=== PATIENT | male | born 1985 | race African-American/Black ===

== ENCOUNTER 2019-03-27 09:07 | Emergency (ER) | payer OTHER ==
[2019-03-27 09:51] VITALS: BP 120/98; PULSE 93
--- NOTE | 2019-03-27 10:53 | EDM.PDOC ---
ED HPI GENERAL MEDICAL PROBLEM - General Chief Complaint: Fever Stated Complaint: HEADACHE VOMITING AND COUGH Time Seen by Provider: 03/27/19 09:16 Source of Information: Reports: Patient, RN Notes Reviewed - History of Present Illness INITIAL COMMENTS - FREE TEXT/NARRATIVE: 33-year-old male became ill with cough congestion fever chills 2 days ago. As for other family members ill with the same symptoms. He states he has a lot of achiness and also does have headache. Is mostly nonproductive. Difficulty breathing. He did not get a flu shot this year Back Pain Score (Numeric/FACES): 8 - Related Data Allergies Allergy/AdvReac Type Severity Reaction Status Date / Time No Known Allergies Allergy Verified 12/19/14 11:38 Home Meds: Home Meds . [No Known Home Meds] 03/27/19 [History] Past Medical History - Past Health History Medical/Surgical History: Denies Medical/Surgical History HEENT History: Reports: None Cardiovascular History: Reports: None Respiratory History: Reports: Asthma Other Respiratory History: states outgrew as a child Gastrointestinal History: Reports: None Genitourinary History: Reports: None Musculoskeletal History: Reports: Back Pain, Chronic Neurological History: Reports: None Psychiatric History: Reports: None Endocrine/Metabolic History: Reports: None Hematologic History: Reports: None Immunologic History: Reports: None Oncologic (Cancer) History: Reports: None Dermatologic History: Reports: None - Infectious Disease History Infectious Disease History: Reports: None - Past Surgical History HEENT Surgical History: Reports: None Cardiovascular Surgical History: Reports: None GI Surgical History: Reports: None Male Surgical History: Reports: None Musculoskeletal Surgical History: Reports: None Social & Family History - Family History HEENT: Reports: None Cardiac: Reports: CAD Respiratory: Reports: Asthma : Reports: None OBGYN: Reports: None Musculoskeletal: Reports: None Neurological: Reports: None Psychiatric: Reports: None Endocrine/Metabolic: Reports: None Hematologic: Reports: None Oncologic: Reports: Breast - Tobacco Use Smoking Status *Q: Never Smoker - Caffeine Use Caffeine Use: Reports: Energy Drinks, Soda - Recreational Drug Use Recreational Drug Use: No ED ROS GENERAL - Review of Systems Review Of Systems: See Below Constitutional: Reports: Fever, Chills HEENT: Reports: Rhinitis. Denies: Ear Pain Respiratory: Reports: Cough, Sputum GI/Abdominal: Denies: Abdominal Pain, Diarrhea, Vomiting Musculoskeletal: Reports: Other (Generalized achiness) Skin: Reports: No Symptoms Neurological: Reports: Headache ED EXAM, GENERAL - Physical Exam Exam: See Below General Appearance: Alert, No Apparent Distress Nose: Normal Inspection Throat/Mouth: Normal Inspection Head: Atraumatic. No: Facial Swelling Respiratory/Chest: No Respiratory Distress, Lungs Clear, Normal Breath Sounds. No: Rhonchi, Wheezing Cardiovascular: Regular Rate, Rhythm Extremities: Normal Inspection Neurological: Alert, Oriented, No Motor/Sensory Deficits Skin Exam: Warm, Dry Course - Vital Signs Last Recorded V/S: Last Vital Signs Temp 98.6 F 03/27/19 09:47 Pulse 93 03/27/19 09:47 Resp 16 03/27/19 09:47 BP 120/98 H 03/27/19 09:47 Pulse Ox 98 03/27/19 09:47 - Re-Assessments/Exams Free Text/Narrative Re-Assessment/Exam: 03/27/19 12:04 [id number] daughter did test positive for influenza B.: About the same time that he did. He did all 5 members of the family are ill with the same symptoms. He does need a work note for today and tomorrow. Discharge instructions as documented. Departure - Departure Time of Disposition: 10:51 Disposition: Home, Self-Care 01 Condition: Fair Clinical Impression: Influenza - Discharge Information Instructions: Influenza, Adult, [id number] Referrals: PCP,None [Primary Care Provider] - Forms: ED Department Discharge, ED Return to Work/School Form Additional Instructions: Rest, vaporizer or steam as needed, alternate Tylenol and ibuprofen as needed for discomfort. Your symptoms should gradually improve over the next 2-3 days. You should be feeling a fair amount better by Friday. Follow-up clinic if not much better within 3-4 days as expected. Return to ED as needed. Sepsis Event Note - Evaluation Sepsis Screening Result: No Definite Risk - Focused Exam Vital Signs: Vital Signs Temp Pulse Resp BP Pulse Ox 03/27/19 09:47 98.6 F 93 16 120/98 H 98 Date Exam was Performed: 03/27/19 Time Exam was Performed: 12:00
== END 2019-03-27 11:00 | disposition home or self-care (01) ==
LOC: JD.ED 09:07
DX: J11.1 Influenza due to unidentified influenza virus with other respiratory manifestations (principal)
CPT/HCPCS: 99281; 99283

== ENCOUNTER 2019-12-03 09:18 | Emergency (ER) | payer OTHER ==
[2019-12-03 09:41] VITALS: BP 126/80; PULSE 81
--- NOTE | 2019-12-03 09:47 | EDM.PDOC ---
ED HPI GENERAL MEDICAL PROBLEM - General Chief Complaint: Bite:Animal, Insect Stated Complaint: DOG BITE Time Seen by Provider: 12/03/19 09:46 Source of Information: Reports: Patient History Limitations: Reports: No Limitations - History of Present Illness INITIAL COMMENTS - FREE TEXT/NARRATIVE: 34-year-old male presents to the ED with a dog bite to the palmar aspect of his right hand. Of note he is right-hand dominant. He states he was just playing with his pitbull dog after he got home from work at 0100 hrs. this morning and the dog nipped him causing a bite to the volar aspect of his right hand below distal to the second metacarpal joint. Subcutaneous tissue has been brought back up through the wound and it is protruding from the wound. Laceration appears to be around 2 cm in length. It is being cleaned up at this time. Patient is unsure when his last tetanus toxoid and diphtheria pertussis vaccine was updated. It will be dated today. He reports the dog is up-to-date on all of its shots. Onset: Today, Sudden Onset Date: 12/03/19 Onset Time: 01:00 Duration: Hour(s):, Constant Location: Reports: Upper Extremity, Right (Right palmar aspect of hand dog wound just proximal to the second MCP joint of his right hand. Subcutaneous tissue is protruding from the wound.) Quality: Reports: Ache, Burning, Throbbing Severity: Mild Improves with: Reports: None Worsens with: Reports: None Context: Reports: Trauma (Dog bite right hand), Other. Denies: Activity, Exercise, Lifting, Sick Contact Associated Symptoms: Reports: No Other Symptoms Treatments DATA ANALYSIS INTERN: Reports: Other (see below) Right Hand Pain Score (Numeric/FACES): 6 - Related Data Allergies Allergy/AdvReac Type Severity Reaction Status Date / Time No Known Allergies Allergy Verified 12/03/19 09:41 Home Meds: Home Meds Amoxicillin/Clavulanate K [Augmentin 500-125 MG] 1 tab PO BID #12 tablet 12/03/19 [Rx] Past Medical History - Past Health History Medical/Surgical History: Denies Medical/Surgical History HEENT History: Reports: None Cardiovascular History: Reports: None Respiratory History: Reports: Asthma Other Respiratory History: states outgrew as a child Gastrointestinal History: Reports: None Genitourinary History: Reports: None Musculoskeletal History: Reports: Back Pain, Chronic Neurological History: Reports: None Psychiatric History: Reports: None Endocrine/Metabolic History: Reports: None Hematologic History: Reports: None Immunologic History: Reports: None Oncologic (Cancer) History: Reports: None Dermatologic History: Reports: None - Infectious Disease History Infectious Disease History: Reports: Chicken Pox - Past Surgical History HEENT Surgical History: Reports: None Cardiovascular Surgical History: Reports: None GI Surgical History: Reports: None Male Surgical History: Reports: None Musculoskeletal Surgical History: Reports: None Social & Family History - Family History Family Medical History: Noncontributory HEENT: Reports: None Cardiac: Reports: CAD Respiratory: Reports: Asthma : Reports: None OBGYN: Reports: None Musculoskeletal: Reports: None Neurological: Reports: None Psychiatric: Reports: None Endocrine/Metabolic: Reports: None Hematologic: Reports: None Oncologic: Reports: Breast - Tobacco Use Smoking Status *Q: Never Smoker - Caffeine Use Caffeine Use: Reports: Coffee, Energy Drinks, Soda, Tea - Recreational Drug Use Recreational Drug Use: No - Living Situation & Occupation Living situation: Reports: Single Occupation: Employed ED ROS GENERAL - Review of Systems Review Of Systems: See Below Constitutional: Reports: No Symptoms HEENT: Reports: No Symptoms Respiratory: Reports: No Symptoms Cardiovascular: Reports: No Symptoms Endocrine: Reports: No Symptoms GI/Abdominal: Reports: No Symptoms : Reports: No Symptoms Musculoskeletal: Reports: No Symptoms Skin: Reports: No Symptoms Neurological: Reports: No Symptoms Psychiatric: Reports: No Symptoms Hematologic/Lymphatic: Reports: No Symptoms Immunologic: Reports: No Symptoms ED EXAM, ANIMAL BITE - Physical Exam Exam: See Below Exam Limited By: No Limitations General Appearance: Alert, WD/WN, No Apparent Distress, Other (Temperature is 36.4. Heart rate 81 and sinus respiratory is 19 with O2 sats of 99% room air BP 126/80.) Extremities: Other (Examination was limited to the palmar aspect of his right hand. He has suffered a deep dog bite estimated VO 2 cm in length slightly jagged just proximal to the second MCP joint right hand volar aspect. Adipose tissue is protruding from the wound and it will need to be debrided and closed with sutures.) Neurological: Alert, Oriented, CN II-XII Intact, Normal Cognition Psychiatric: Normal Affect Skin Exam: Normal Color, Warm/Dry ED ANIMAL BITE PROCEDURES - Laceration/Wound Repair Proximal Hand Lac/Wound Length In cm: 1.4 (Linear laceration approximately 1.4 cm in length with protruding subcutaneous fat tissue from the wound.) Appearance: Subcutaneous, Clean Distal NVT: Neuro & Vascular Intact Anesthetic Type: Local Local Anesthesia - Lidocaine (Xylocaine): 1% Plain Local Anesthetic Volume: 2cc Skin Prep: Chlorhexidine (Hibiciens) Closed With: Sutures Suture Size: 4-0 # of Sutures: 3 Suture Type: Nylon, Interrupted, Simple Course - Vital Signs Last Recorded V/S: Last Vital Signs Temp 36.4 C 12/03/19 09:39 Pulse 81 12/03/19 09:39 Resp 19 12/03/19 09:39 BP 126/80 12/03/19 09:39 Pulse Ox 99 12/03/19 09:39 - Orders/Labs/Meds Orders: Active Orders 24 hr Category Date Time Status Vaccines to be Administered [RC] PER UNIT ROUTINE Care 12/03/19 09:49 Active Meds: Medications Discontinued Medications Generic Name Dose Route Start Last Admin Trade Name Iker PRN Reason Stop Dose Admin Diphtheria/Tetanus/Acell Pertussis 0.5 ml 12/03/19 09:49 12/03/19 10:13 Adacel IM 12/03/19 09:50 0.5 ml .ONCE ONE Administration Lidocaine HCl 10 ml 12/03/19 09:50 Xylocaine 1% INJECT 12/03/19 09:51 ONETIME ONE - Radiology Interpretation Free Text/Narrative:: 34-year-old male of -[place] ancestry presents to the ED with an acute dog bite to the palmar aspect of his right hand. He has suffered a deep 2 cm bite wound to the volar aspect of his right hand just proximal to the second MCP joint. He has full range of motion of the finger and normal sensation to the tip. Wound however has adipose tissue protruding from the wound. The wound is to be cleansed and then will be sutured under local anesthetic. His tetanus diphtheria pertussis vaccine will be updated today since he cannot member his last one. He will be placed on Augmentin 500/125 mg tablets twice daily for the next 6 days to prevent secondary wound infection. - Re-Assessments/Exams Free Text/Narrative Re-Assessment/Exam: 12/03/19 11:49 once the wound was cleaned up it appears to be linear and approximately 1.4 cm in length. Fatty tissue is tubing from the wound. Wound was anesthetized with 1% lidocaine.And then debrided minimally. Sutures x3 with 4-0 Ethilon sutures were placed to provide wound apposition and hemostasis. Sutures will need to be removed in 10 days time. Patient the meantime will cleanse the wound daily and apply topical antibiotic such as bacitracin and Polysporin Departure - Departure Time of Disposition: 11:45 Disposition: Home, Self-Care 01 Condition: Fair Clinical Impression: Dog bite of right hand Qualifiers: Encounter type: initial encounter Qualified Code(s): S61.451A - Open bite of right hand, initial encounter - Discharge Information *PRESCRIPTION DRUG MONITORING PROGRAM REVIEWED*: Not Applicable *COPY OF PRESCRIPTION DRUG MONITORING REPORT IN PATIENT LUCITA: Not Applicable Prescriptions: Amoxicillin/Clavulanate K [Augmentin 500-125 MG] 1 tab PO BID #12 tablet Referrals: PCP,None [Primary Care Provider] - Forms: ED Department Discharge, ED Return to Work/School Form Additional Instructions: Evaluation in the emergency room today in regards to dog bite to the volar aspe ct of your right hand just proximal to the second MCP joint below your index finger. Wound appears to be approximately 1.4 cm in length and has tissue protruding from the wound. Wound is currently 9 hours old. Wound will be cleansed. Wound was then anesthetized with 1% lidocaine and sutured under local anesthetic with minimal debridement of potentially infected tissue. Three sutures will need to be removed in 10 days time. At home is daily cleanse the wound with soap and water. Showering is okay but the wound should not be soaked under water until the sutures are removed. Then apply topical antibiotic such as bacitracin or Polysporin once daily and cover with a bandage to keep clean. Return to medical care if any signs of infection occur such as increased redness, swelling or obvious pus formation. Please call your primary care physician to have this carried out or attend the walk-in clinic at [facility]. You will need to take antibiotic Augmentin 1 tablet twice daily for the next 6 days to prevent secondary wound infection. Your tetanus diphtheria pertussis vaccine has been updated today and is good for the next 10 years. Sepsis Event Note (ED) - Evaluation Sepsis Screening Result: No Definite Risk - Focused Exam Vital Signs: Vital Signs Temp Pulse Resp BP Pulse Ox 12/03/19 09:39 36.4 C 81 19 126/80 99 - My Orders Last 24 Hours: My Active Orders 12/03/19 09:49 Vaccines to be Administered [RC] PER UNIT ROUTINE - Assessment/Plan Last 24 Hours: My Active Orders 12/03/19 09:49 Vaccines to be Administered [RC] PER UNIT ROUTINE
[2019-12-03] MEDS ORDERED: Diphtheria,Pertussis(Acell),Tetanus Vaccine 0.5 ML Syringe IM ONE (09:49)
[2019-12-03] MEDS ORDERED: Lidocaine 1% 10 ML MDV INJECT ONE (09:50)
== END 2019-12-03 12:00 | disposition home or self-care (01) ==
LOC: JD.ED 09:18
DX: S61.451A Open bite of right hand, initial encounter (principal); Z23 Encounter for immunization; J45.909 Unspecified asthma, uncomplicated; W54.0XXA Bitten by dog, initial encounter
CPT/HCPCS: 12001; 90471; 90715; 99283; J2001

== ENCOUNTER 2020-11-14 13:17 | Emergency (ER) | payer MEDICAID, OTHER ==
[2020-11-14 13:55] VITALS: BP 134/81; PULSE 74
[2020-11-14] MEDS ORDERED: Sodium Chloride 0.9% 10 ML Syringe FLUSH PRN (14:17)
[2020-11-14] MEDS ORDERED: Ondansetron 4 MG/2 ML SDV IVPUSH ONE (14:17)
[2020-11-14] MEDS ORDERED: Iopamidol 612 MG/ML 50 ML SDV IVPUSH ONE (14:22)
[2020-11-14] MEDS ORDERED: Iopamidol 612 MG/ML 100 ML Bottle IVPUSH ONE (14:22)
[2020-11-14] MEDS ORDERED: Diatrizoate Meglumine/Diatrizoate Sodium 37% 120 ML Bottle PO ONE (14:22)
[2020-11-14] MEDS ORDERED: Sodium Chloride 0.9% 1,000 ML IV SCH (14:30)
--- NOTE | 2020-11-14 14:37 | EDM.PDOC ---
ED HPI GENERAL MEDICAL PROBLEM - General Chief Complaint: Abdominal Pain Stated Complaint: ABD PAIN/VOMITING Time Seen by Provider: 11/14/20 14:07 Source of Information: Reports: Patient, RN Notes Reviewed History Limitations: Reports: No Limitations - History of Present Illness INITIAL COMMENTS - FREE TEXT/NARRATIVE: Patient is a 35-year-old male who presents to the ER for his abdominal pain with associated nausea/vomiting/diarrhea. Patient states that this abdominal pain started roughly 3 hours after eating at the [employer], but none of his other family members are sick. Notes that he woke up this morning with continuing abdominal pain, with associated nausea and vomiting with roughly 4 episodes, and also multiple episodes of diarrhea. Notes that has not been able to keep anything down for food or fluids much at all. He last drank some Sprite earlier this morning. He is having no fevers or chills, cough or shortness of breath. Patient does point to his right lower quadrant as a source of his abdominal discomfort. Also states that he is never had any abdominal surgeries. He has no regular care provider. He takes no regular medications. 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 (see below) Other Treatments PERSONAL COMPUTER NETWORK ENGINEER: none Right Lower Abdomen Pain Score (Numeric/FACES): 5 - Related Data Allergies Allergy/AdvReac Type Severity Reaction Status Date / Time No Known Allergies Allergy Verified 12/03/19 09:41 Home Meds: Home Meds Ondansetron [Zofran ODT] 4 mg PO Q8H PRN #10 tab.dis 11/14/20 [Rx] Past Medical History - Past Health History Medical/Surgical History: Denies Medical/Surgical History HEENT History: Reports: None Cardiovascular History: Reports: None Respiratory History: Reports: Asthma Other Respiratory History: states outgrew as a child Gastrointestinal History: Reports: None Genitourinary History: Reports: None Musculoskeletal History: Reports: Back Pain, Chronic Neurological History: Reports: None Psychiatric History: Reports: None Endocrine/Metabolic History: Reports: None Hematologic History: Reports: None Immunologic History: Reports: None Oncologic (Cancer) History: Reports: None Dermatologic History: Reports: None - Infectious Disease History Infectious Disease History: Reports: Chicken Pox - Past Surgical History HEENT Surgical History: Reports: None Cardiovascular Surgical History: Reports: None GI Surgical History: Reports: None Male Surgical History: Reports: None Musculoskeletal Surgical History: Reports: None Social & Family History - Family History Family Medical History: No Pertinent Family History HEENT: Reports: None Cardiac: Reports: CAD Respiratory: Reports: Asthma : Reports: None OBGYN: Reports: None Musculoskeletal: Reports: None Neurological: Reports: None Psychiatric: Reports: None Endocrine/Metabolic: Reports: None Hematologic: Reports: None Oncologic: Reports: Breast - Tobacco Use Tobacco Use Status *Q: Never Tobacco User - Caffeine Use Caffeine Use: Reports: Coffee, Energy Drinks, Soda, Tea - Recreational Drug Use Recreational Drug Use: No - Living Situation & Occupation Living situation: Reports: Single Occupation: Employed ED ROS GENERAL - Review of Systems Review Of Systems: Comprehensive ROS is negative, except as noted in HPI. ED EXAM, GI/ABD - Physical Exam Exam: See Below Exam Limited By: No Limitations General Appearance: Alert, WD/WN, No Apparent Distress Respiratory/Chest: No Respiratory Distress, Lungs Clear, Normal Breath Sounds, No Accessory Muscle Use, Chest Non-Tender Cardiovascular: Normal Peripheral Pulses, Regular Rate, Rhythm, No Edema GI/Abdominal Exam: Normal Bowel Sounds, Soft, No Distention, No Mass, Tender (McBurney's point positive, some rebound tenderness noted) Extremities: Normal Inspection, Normal Capillary Refill Neurological: Alert, Oriented, Normal Cognition, No Motor/Sensory Deficits Psychiatric: Normal Affect, Normal Mood Skin Exam: Warm, Dry, Intact, Normal Color, No Rash Course - Vital Signs Last Recorded V/S: Last Vital Signs Temp 96.7 F L 11/14/20 13:54 Pulse 74 11/14/20 13:54 Resp 20 11/14/20 13:54 BP 134/81 11/14/20 13:54 Pulse Ox 99 11/14/20 13:54 - Orders/Labs/Meds Orders: Active Orders 24 hr Category Date Time Status Peripheral IV Care [RC] . DIRECTED Care 11/14/20 14:17 Ordered UA W/MICROSCOPIC [URIN] Stat Lab 11/14/20 14:17 Ordered Sodium Chloride 0.9% [Normal Saline] 1,000 ml Med 11/14/20 14:30 Ordered IV ASDIRECTED Sodium Chloride 0.9% [Saline Flush] Med 11/14/20 14:17 Ordered 10 ml FLUSH ASDIRECTED PRN Sodium Chloride 0.9% [Saline Flush] Med 11/14/20 14:22 Active 10 ml FLUSH ONETIME PRN Peripheral IV Insertion Adult [OM.PC] Stat Oth 11/14/20 14:17 Ordered Medication Orders Sodium Chloride (Normal Saline) 1,000 mls @ 999 mls/hr IV ASDIRECTED PB Last Admin: 11/14/20 14:42 Dose: 999 mls/hr Documented by: NICKIE Sodium Chloride (Sodium Chloride 0.9% 10 Ml Syringe) 10 ml FLUSH ASDIRECTED PRN PRN Reason: Keep Vein Open Last Admin: 11/14/20 14:41 Dose: 10 ml Documented by: NICKIE Sodium Chloride (Sodium Chloride 0.9% 10 Ml Syringe) 10 ml FLUSH ONETIME PRN PRN Reason: IV FLUSH Last Admin: 11/14/20 15:25 Dose: 10 ml Documented by: Admin: 11/14/20 14:58 Dose: 10 ml Documented by: NICKIE Labs: Laboratory Tests 11/14/20 11/14/20 Range/Units 13:50 13:50 WBC 5.65 (4.23-9.07) K/mm3 RBC 4.64 (4.63-6.08) M/mm3 Hgb 14.9 (13.7-17.5) gm/dl Hct 44.3 (40.1-51.0) % MCV 95.5 H (79.0-92.2) fl MCH 32.1 (25.7-32.2) pg MCHC 33.6 (32.2-35.5) g/dl RDW Std Deviation 46.8 H (35.1-43.9) fL Plt Count 311 (163-337) K/mm3 MPV 10.2 (9.4-12.3) fl Neut % (Auto) 54.6 (34.0-67.9) % Lymph % (Auto) 32.6 (21.8-53.1) % Weld % (Auto) 10.1 (5.3-12.2) % Eos % (Auto) 2.1 (0.8-7.0) Baso % (Auto) 0.4 (0.1-1.2) % Neut # (Auto) 3.09 (1.78-5.38) K/mm3 Lymph # (Auto) 1.84 (1.32-3.57) K/mm3 Weld # (Auto) 0.57 (0.30-0.82) K/mm3 Eos # (Auto) 0.12 (0.04-0.54) K/mm3 Baso # (Auto) 0.02 (0.01-0.08) K/mm3 Sodium 143 (136-145) mEq/L Potassium 4.5 (3.5-5.1) mEq/L Chloride 108 H (98-107) mEq/L Carbon Dioxide 25 (21-32) mEq/L Anion Gap 14.5 (5-15) BUN 12 (7-18) mg/dL Creatinine 0.9 (0.7-1.3) mg/dL Est Cr Clr Drug Dosing 127.00 mL/min Estimated GFR (MDRD) > 60 (>60) mL/min BUN/Creatinine Ratio 13.3 L (14-18) Glucose 107 H (70-99) mg/dL Calcium 8.8 (8.5-10.1) mg/dL Total Bilirubin 0.3 (0.2-1.0) mg/dL AST 26 (15-37) U/L ALT 45 (16-63) U/L Alkaline Phosphatase 68 (46-116) U/L C-Reactive Protein <0.2 (<1.0) mg/dL Total Protein 7.6 (6.4-8.2) g/dl Albumin 3.9 (3.4-5.0) g/dl Globulin 3.7 gm/dL Albumin/Globulin Ratio 1.1 (1-2) Lipase 46 L (73-393) U/L Meds: Medications Generic Name Dose Route Start Last Admin Trade Name Freq PRN Reason Stop Dose Admin Sodium Chloride 1,000 mls @ 999 mls/hr 11/14/20 14:30 11/14/20 14:42 Normal Saline IV 999 mls/hr ASDIRECTED PB Administration Sodium Chloride 10 ml 11/14/20 14:17 11/14/20 14:41 Sodium Chloride 0.9% 10 Ml Syringe FLUSH 10 ml ASDIRECTED PRN Administration Keep Vein Open Sodium Chloride 10 ml 11/14/20 14:22 11/14/20 15:25 Sodium Chloride 0.9% 10 Ml Syringe FLUSH 10 ml ONETIME PRN Administration IV FLUSH Discontinued Medications Generic Name Dose Route Start Last Admin Trade Name Freq PRN Reason Stop Dose Admin Diatrizoate Meglum/Diatrizoate Sod 120 ml 11/14/20 14:22 11/14/20 15:24 Diatrizoate Meglumine/Diatrizoate Sodium 37% 120 Ml Bottle PO 11/14/20 14:23 90 ml ONETIME ONE Administration Iopamidol 50 ml 11/14/20 14:22 11/14/20 15:24 Iopamidol 612 Mg/Ml 50 Ml Sdv IVPUSH 11/14/20 14:23 25 ml ONETIME ONE Administration Iopamidol 100 ml 11/14/20 14:22 11/14/20 15:24 Iopamidol 612 Mg/Ml 100 Ml Bottle IVPUSH 11/14/20 14:23 100 ml ONETIME ONE Administration Ondansetron HCl 4 mg 11/14/20 14:17 11/14/20 14:38 Ondansetron 4 Mg/2 Ml Sdv IVPUSH 11/14/20 14:18 4 mg ONETIME ONE Administration - Re-Assessments/Exams Free Text/Narrative Re-Assessment/Exam: 11/14/20 14:37 Patient presents to the ER for evaluation of his abdominal discomfort with nausea/vomiting/diarrhea. Likely this could just be a viral gastroenteritis, but he is having pain in his right lower quadrant, so evaluation for appendicitis is warranted. We will go ahead and get abdomen pelvis CT with basic labs, give IV fluids and IV nausea meds for initial management. 11/14/20 15:11 CBC, CMP, lipase and CRP are unremarkable for today's purposes. 11/14/20 16:[address] is back and unremarkable, there is a small fat-containing right inguinal hernia but it does not look incarcerated or strangulated. We will go ahead and discharge patient home with general recommendations. I will give him a few tablets of Zofran, and recommend that he take some Imodium for the diarrhea. Departure - Departure Time of Disposition: 16:18 Disposition: Home, Self-Care 01 Condition: Good Clinical Impression: Viral gastroenteritis - Discharge Information *PRESCRIPTION DRUG MONITORING PROGRAM REVIEWED*: No *COPY OF PRESCRIPTION DRUG MONITORING REPORT IN PATIENT LUCITA: No Prescriptions: Ondansetron [Zofran ODT] 4 mg PO Q8H PRN #10 tab.dis PRN Reason: Nausea Instructions: Viral Gastroenteritis, Adult, [id number] Referrals: PCP,None [Primary Care Provider] - Forms: ED Department Discharge, ED Return to Work/School Form Additional Instructions: You have been evaluated in the ED for nausea/vomiting/diarrhea. It is likely that this is caused from a viral gastroenteritis. Your laboratory evaluation, and CT were negative for any acute bacterial infections that would need more emergent management. You have received IV fluid in the ED to help with the dehydration from the vomiting and diarrhea. You may take oral Immodium for diarrheal relief; please take the medication according to home office claims examiner instructions on the box. You may also use 600 mg ibuprofen or 500 mg Tylenol every 6 hours as needed for ongoing pain or discomfort. Do not exceed 3200 mg ibuprofen or 4000 mg Tylenol in a 24- hour time span. Over the next 24-48 hours please try to limit diet to clear liquids and advance as tolerated to a bland diet to alleviate symptoms of nausea/vomiting/diarrhea. Please use the Zofran every 8 hours as needed for nausea. This medication was electronically sent to the [place] pharmacy located in the [employer] store. Please return to the ED if your symptoms should change or worsen. Sepsis Event Note (ED) - Focused Exam Vital Signs: Vital Signs Temp Pulse Resp BP Pulse Ox 11/14/20 13:54 96.7 F L 74 20 134/81 99 - My Orders Last 24 Hours: My Active Orders 11/14/20 14:17 Peripheral IV Care [RC] . DIRECTED UA W/MICROSCOPIC [URIN] Stat Sodium Chloride 0.9% [Saline Flush] 10 ml FLUSH ASDIRECTED PRN Peripheral IV Insertion Adult [OM.PC] Stat 11/14/20 14:22 Sodium Chloride 0.9% [Saline Flush] 10 ml FLUSH ONETIME PRN 11/14/20 14:30 Sodium Chloride 0.9% [Normal Saline] 1,000 ml IV ASDIRECTED - Assessment/Plan Last 24 Hours: My Active Orders 11/14/20 14:17 Peripheral IV Care [RC] . DIRECTED UA W/MICROSCOPIC [URIN] Stat Sodium Chloride 0.9% [Saline Flush] 10 ml FLUSH ASDIRECTED PRN Peripheral IV Insertion Adult [OM.PC] Stat 11/14/20 14:22 Sodium Chloride 0.9% [Saline Flush] 10 ml FLUSH ONETIME PRN 11/14/20 14:30 Sodium Chloride 0.9% [Normal Saline] 1,000 ml IV ASDIRECTED
[2020-11-14] MEDS: Sodium Chloride 0.9% 10 ML Syringe FLUSH PRN ×2 (14:58→15:25)
--- NOTE | 2020-11-14 15:52 | CT ---
CT abdomen and pelvis Technique: Multiple axial sections were obtained from above the dome of the diaphragm inferiorly through the pubic symphysis. Intravenous and oral contrast were utilized. Delayed images were also obtained through the bladder. Reconstructed coronal and sagittal images were obtained. Comparison: No prior abdomen or pelvis imaging is available. Findings: Visualized lung bases show nothing acute. Liver contains no focal parenchymal abnormality. Gallbladder contains no calcified gallstones. Spleen size is normal. Adrenal glands show no nodule. Pancreas shows no discrete abnormality. Kidneys show symmetric contrast enhancement without hydronephrosis or mass. Delayed images show contrast within the distal ureters and within the bladder. Abdominal aorta shows no aneurysm. No retroperitoneal adenopathy or mesenteric abnormalities are seen. Appendix is seen which is normal in size. No pelvic mass or adenopathy is noted. Minimal inguinal hernia is seen on the right side which contains fat. Bone window settings were reviewed which appear within normal limits for the patient's age. No bowel dilatation is seen. No free fluid or inflammatory change is seen. Impression: 1. Minimal fat-containing right inguinal hernia. 2. No additional abnormality is appreciated on CT study of the abdomen and pelvis. Diagnostic code #2
== END 2020-11-14 16:36 | disposition home or self-care (01) ==
LOC: JD.ED 13:17
DX: A08.4 Viral intestinal infection, unspecified (principal); J45.909 Unspecified asthma, uncomplicated
CPT/HCPCS: 36415; 74177; 74177-26; 80053; 83690; 85025; 86140; 96374; 99283; 99284-25; J2405; J7030; Q9963; Q9967

== ENCOUNTER 2023-05-18 12:02 | Emergency (ER) | payer SELFPAY ==
[2023-05-18] MEDS: Amoxicillin/Clavulanate K 875-125 MG Tab PO ONE (12:32)
[2023-05-18] MEDS: predniSONE 20 MG Tab PO ONE (12:33)
[2023-05-18 12:55] VITALS: BP 153/95; PULSE 84
[2023-05-19] MEDS ORDERED: predniSONE 20 MG Tab PO ONE (12:23)
== END 2023-05-18 12:55 | disposition home or self-care (01) ==
LOC: JD.ED 12:02
DX: J02.0 Streptococcal pharyngitis (principal); Z79.899 Other long term (current) drug therapy
CPT/HCPCS: 99283; A9270; J7512